=== PATIENT | male | born 1945 | race African-American/Black ===

== ENCOUNTER 2017-07-07 23:07 | Inpatient (IN) | payer MEDICARE, MEDICAID ==
[~2017-07-07] VITALS: Ht 172.7 cm; Wt 86.6 kg
[~2017-07-07 23:07] MED LIST: AMLO10TA80 PO; ATOR10TA69 PO; BIDIL PO; CHOL500010 PO; CLON0.1T PO; CLOP75TA33 PO; DOCU-138 PO
[2017-07-08] MEDS ORDERED: SODIUM CHLORIDE 0.9% 1,000 ML IV ONE (00:26)
[2017-07-08] MEDS ORDERED: ONDANSETRON HCL 4MG/2ML VIAL IV STA (00:26)
[2017-07-08] MEDS ORDERED: MORPHINE SULFATE 4 MG/ML CPJ (NOT FOR IM USE) IV STA (00:26)
[2017-07-08 01:12] LABS: BASOPHILS % 0.5 % (0.0-2.0); EOSINOPHILS % 9.3 % (0.0-5.0); HEMATOCRIT. 42.5 % (42.0-52.0); HEMOGLOBIN. 13.8 g/dL (14.0-18.0); LYMPHOCYTES % 25.8 % (20.0-50.0); MEAN CORPUSCULAR HEMOGLOBIN 28.8 pg (28.0-32.0); MEAN CORPUSCULAR VOLUME 88.4 fL (80.0-94.0); MEAN PLATELET VOLUME 9.4 fl (7.4-10.4); MONOCYTES % 12.6 % (2.0-8.0); NEUTROPHILS % 51.8 % (40.0-76.0); PLATELET 138 x1000/uL (130-400); RED BLOOD CELL COUNT 4.81 mill/uL (4.7-6.1); RED CELL DISTRIBUTION WIDTH 13.1 % (11.6-14.6)
[2017-07-08 01:22] LABS: PROTHROMBIN TIME 10.8 sec (9.4-11.6)
[2017-07-08 01:29] LABS: CARBON DIOXIDE 28 mEq/L (21-32); CHLORIDE 109 mEq/L (98-107); TROPONIN I < 0.02 ng/mL (0.00-0.04)
[2017-07-08 04:54] LABS: CLARITY URINE CLEAR (CLEAR); COLOR URINE DARK YELLOW (YELLOW); GLUCOSE URINE NEGATIVE (NEGATIVE); KETONES URINE TRACE (NEGATIVE); LEUKOCYTE ESTERASE URINE NEGATIVE (NEGATIVE); NITRITE URINE NEGATIVE (NEGATIVE); OCCULT BLOOD URINE NEGATIVE (NEGATIVE); PROTEIN URINE 1+ (NEGATIVE); SPECIFIC GRAVITY URINE 1.038 (1.005-1.030)
[2017-07-08 08:00] VITALS: BP 179/83
[2017-07-08] MEDS: HYDRALAZINE HCL 50MG TABLET PO SCH ×3 (10:15→21:13)
[2017-07-08 10:30] VITALS: BP 176/93
[2017-07-08 12:00] VITALS: BP_SYST 113; BP_SYST 131; BP_DIAS 50; BP_DIAS 71
[2017-07-08] MEDS ORDERED: PNEUMOCOCCAL 23-VAL P-SAC VAC 0.5 ML IM ONE (12:15)
[2017-07-08] MEDS: CHOLECALCIFEROL (D3) 1000 UNIT TABLET PO SCH (14:04)
[2017-07-08] MEDS: AMLODIPINE 10MG TABLET PO SCH (14:05)
[2017-07-08] MEDS: CLOPIDOGREL 75MG TABLET PO SCH (14:05)
[2017-07-08] MEDS: DOCUSATE SODIUM 100MG CAPSULE PO SCH (14:05)
[2017-07-08] MEDS: ENOXAPARIN 40MG/0.4ML SYR SUBCUT SCH (16:33)
[2017-07-08] MEDS: SODIUM CHLORIDE 0.9% 1,000 ML IV SCH (16:34)
[2017-07-08 16:37] LABS: T4 FREE 1.18 ng/dL (0.76-1.46)
[2017-07-08 16:44] VITALS: BP 140/77
[2017-07-08] MEDS: CLONIDINE 0.1MG TABLET PO SCH (18:21)
[2017-07-08 19:20] LABS: *AMPHETAMINES SCREEN URINE NEGATIVE (NEGATIVE); *BARBITURATES SCREEN URINE NEGATIVE (NEGATIVE); *BENZODIAZEPINES SCREEN URINE NEGATIVE (NEGATIVE); *COCAINE SCREEN URINE NEGATIVE (NEGATIVE); CANNABINOID URINE SCREEN NEGATIVE (NEGATIVE); METHADONE URINE SCREEN NEGATIVE (NEGATIVE); OPIATES URINE SCREEN PRESUMTIVE POSITIVE (NEGATIVE); PHENCYCLIDINE URINE SCREEN NEGATIVE (NEGATIVE)
[2017-07-08 20:00] VITALS: BP 131/71
[2017-07-08] MEDS: ATORVASTATIN CALCIUM 10MG TABLET PO SCH (21:12)
[2017-07-08 23:41] LABS: CREATINE KINASE 70 IU/L (39-308); CREATINE KINASE MB FRACTION 1.2 ng/mL (0.5-3.6); TROPONIN I < 0.02 ng/mL (0.00-0.04)
[2017-07-09] VITALS (7 sets, daily range): BP systolic 97–147; BP diastolic 64–73
[2017-07-09] MEDS: SODIUM CHLORIDE 0.9% 1,000 ML IV SCH ×2 (04:47→17:02)
[2017-07-09] MEDS: HYDRALAZINE HCL 50MG TABLET PO SCH ×3 (06:58→21:20)
[2017-07-09 07:35] LABS: CREATINE KINASE 66 IU/L (39-308); CREATINE KINASE MB FRACTION 2.1 ng/mL (0.5-3.6); TROPONIN I < 0.02 ng/mL (0.00-0.04)
[2017-07-09] MEDS: CLOPIDOGREL 75MG TABLET PO SCH (08:40)
[2017-07-09] MEDS: DOCUSATE SODIUM 100MG CAPSULE PO SCH (08:40)
[2017-07-09] MEDS: AMLODIPINE 10MG TABLET PO SCH (08:40)
[2017-07-09] MEDS: CHOLECALCIFEROL (D3) 1000 UNIT TABLET PO SCH (08:41)
[2017-07-09] MEDS: ENOXAPARIN 40MG/0.4ML SYR SUBCUT SCH (14:27)
[2017-07-09] MEDS: CLONIDINE 0.1MG TABLET PO SCH (17:01)
[2017-07-09 17:12] LABS: CREATINE KINASE MB FRACTION 1.8 ng/mL (0.5-3.6); TROPONIN I < 0.02 ng/mL (0.00-0.04)
[2017-07-09 17:13] LABS: CREATINE KINASE 112 IU/L (39-308)
[2017-07-09 19:51] LABS: BASOPHILS % 0.7 % (0.0-2.0); EOSINOPHILS % 9.9 % (0.0-5.0); HEMATOCRIT. 41.4 % (42.0-52.0); HEMOGLOBIN. 13.7 g/dL (14.0-18.0); MEAN CORPUSCULAR HEMOGLOBIN 29.4 pg (28.0-32.0); MEAN PLATELET VOLUME 8.8 fl (7.4-10.4); MONOCYTES % 10.6 % (2.0-8.0); NEUTROPHILS % 57.8 % (40.0-76.0); PLATELET 133 x1000/uL (130-400); RED BLOOD CELL COUNT 4.65 mill/uL (4.7-6.1); RED CELL DISTRIBUTION WIDTH 13.2 % (11.6-14.6)
[2017-07-09 20:16] LABS: CHLORIDE 108 mEq/L (98-107)
[2017-07-09 20:22] LABS: CARBON DIOXIDE 27 mEq/L (21-32)
[2017-07-09] MEDS: ATORVASTATIN CALCIUM 10MG TABLET PO SCH (21:20)
[2017-07-10] VITALS: BP 145/80
[2017-07-10 04:00] VITALS: BP 170/62
[2017-07-10] MEDS: HYDRALAZINE HCL 50MG TABLET PO SCH ×3 (06:47→21:35)
[2017-07-10 08:42] VITALS: BP 165/88
[2017-07-10] MEDS: SODIUM CHLORIDE 0.9% 1,000 ML IV SCH (09:03)
[2017-07-10] MEDS: DOCUSATE SODIUM 100MG CAPSULE PO SCH (09:03)
[2017-07-10] MEDS: CLOPIDOGREL 75MG TABLET PO SCH (09:03)
[2017-07-10] MEDS: AMLODIPINE 10MG TABLET PO SCH (09:03)
[2017-07-10] MEDS: CHOLECALCIFEROL (D3) 1000 UNIT TABLET PO SCH (09:03)
[2017-07-10 12:30] VITALS: BP 187/105
[2017-07-10 16:00] VITALS: BP 147/85
[2017-07-10] MEDS: ENOXAPARIN 40MG/0.4ML SYR SUBCUT SCH (17:05)
[2017-07-10] MEDS: CLONIDINE 0.1MG TABLET PO SCH (17:05)
[2017-07-10 20:00] VITALS: BP 149/76
[2017-07-10] MEDS: ATORVASTATIN CALCIUM 10MG TABLET PO SCH (21:35)
[2017-07-11] VITALS: BP 139/81
[2017-07-11 04:00] VITALS: BP 151/67
[2017-07-11] MEDS: HYDRALAZINE HCL 50MG TABLET PO SCH ×2 (06:51→14:12)
[2017-07-11 08:00] VITALS: BP 147/75
[2017-07-11] MEDS: CHOLECALCIFEROL (D3) 1000 UNIT TABLET PO SCH (08:41)
[2017-07-11] MEDS: CLOPIDOGREL 75MG TABLET PO SCH (08:41)
[2017-07-11] MEDS: DOCUSATE SODIUM 100MG CAPSULE PO SCH (08:42)
[2017-07-11] MEDS: AMLODIPINE 10MG TABLET PO SCH (08:42)
[2017-07-11] MEDS ORDERED: POTASSIUM CHLORIDE 20MEQ TABLET SR PO NR (11:15)
[2017-07-11] MEDS: SODIUM CHLORIDE 0.9% 1,000 ML IV SCH ×2 (12:15→12:16)
[2017-07-11] MEDS: ENOXAPARIN 40MG/0.4ML SYR SUBCUT SCH (14:12)
[2017-07-11 15:07] VITALS: BP 147/75
== END 2017-07-11 16:35 | DRG 391 ==
LOC: ER 23:07 → EDBEDREQ 07-08 06:08 → EDBEDREQTM 07-08 06:08 → ENRESERV 07-08 07:01 → 5WST 07-08 09:39 → UNDODISIN 07-11 14:45
PROVIDERS: ADMIT Family Medicine; ATTEND Family Medicine
DX: K21.9 Gastro-esophageal reflux disease without esophagitis (principal); N17.1 Acute kidney failure with acute cortical necrosis; I69.354 Hemiplegia and hemiparesis following cerebral infarction affecting left non-dominant side; N19 Unspecified kidney failure; E78.5 Hyperlipidemia, unspecified; I10 Essential (primary) hypertension; Z79.899 Other long term (current) drug therapy; Z98.61 Coronary angioplasty status; Z72.89 Other problems related to lifestyle; I51.7 Cardiomegaly
CPT/HCPCS: 36415; 70450; 71010; 80053; 80061; 80305; 81001; 82550; 82553; 82962; 83036; 83880; 84439; 84443; 84484; 85025; 85379; 85610; 90732; 93005; 93306; 93970; 96361; 96374; 96375; 97116; 97162; 97530; 99285; J1650; J2270; J2405; J7030

== ENCOUNTER 2017-12-26 06:31 | Day surgery (SDC) | payer MEDICARE, MEDICAID ==
[~2017-12-26] VITALS: Ht 177.8 cm; Wt 96.2 kg
[~2017-12-26 06:31] MED LIST changes: -BIDIL PO
[2017-12-26] MEDS ORDERED: LIDOCAINE HCL/PF 2% 20 MG/ML 10ML VIAL ONE (07:56)
[2017-12-26] MEDS ORDERED: BALANCED SALT IRRIG SOLN 15ML ONE (07:56)
[2017-12-26] MEDS ORDERED: ACETYLCHOLINE CHLORIDE INTRAOCULAR SOLUTION 1:100 ELECTROLYTE DILUENT IO ONE (07:56)
[2017-12-26] MEDS ORDERED: TETRACAINE 0.5% OPHTH DROPS 4ML ONE (07:56)
[2017-12-26] MEDS ORDERED: BUPIVACAINE HCL/PF 0.75% (7.5MG/ML) 10ML ONE (07:56)
[2017-12-26] MEDS ORDERED: GENTAMICIN SULF 40MG/ML 2ML VIAL ONE (07:56)
[2017-12-26] MEDS ORDERED: PHENYLEPHRINE 2.5% OPHTH 15 DROP/ML BOTTLE LEFTEYE ONE (09:00)
[2017-12-26] MEDS ORDERED: TROPICAMIDE 1% OPHTH DROPS 15ML LEFTEYE ONE (09:00)
[2017-12-26 09:58] LABS: BASOPHILS % 0.9 % (0.0-2.0); EOSINOPHILS % 3.3 % (0.0-5.0); HEMATOCRIT. 40.3 % (42.0-52.0); HEMOGLOBIN. 13.2 g/dL (14.0-18.0); LYMPHOCYTES % 20.5 % (20.0-50.0); MEAN CORPUSCULAR HEMOGLOBIN 29.4 pg (28.0-32.0); MEAN CORPUSCULAR VOLUME 89.7 fL (80.0-94.0); MONOCYTES % 9.5 % (2.0-8.0); NEUTROPHILS % 65.8 % (40.0-76.0); RED CELL DISTRIBUTION WIDTH 14.2 % (11.6-14.6)
[2017-12-26 10:10] LABS: CHLORIDE 107 mEq/L (98-107)
[2017-12-26] MEDS ORDERED: HYALURONATE SODIUM 14 MG/ML 0.85ML SYRINGE IO ONE (11:01)
[2017-12-26] MEDS ORDERED: TOBRAMYCIN/DEXAMETH 0.1/0.3% OPHTH SUSP 2.5ML ONE (11:01)
[2017-12-26] MEDS ORDERED: MIDAZOLAM HCL 2 MG/2 ML VIAL ONE ×2 (11:27→11:51)
[2017-12-26] MEDS ORDERED: ONDANSETRON HCL 4MG/2ML VIAL ONE (11:27)
[2017-12-26] MEDS ORDERED: FENTANYL CITRATE/PF 50MCG/ML 2ML VIAL ONE ×2 (11:27→12:25)
[2017-12-26] MEDS ORDERED: BALANCED SALT IRRIG SOLN COMB1 500ML OP SCH (11:30)
[2017-12-26 11:52] LABS: MEAN PLATELET VOLUME 9.4 fl (7.4-10.4); PLATELET 179 x1000/uL (130-400)
[2017-12-26] MEDS ORDERED: LABETALOL HCL 5MG/ML VIAL 20ML IV ONE (11:53)
[2017-12-26] MEDS ORDERED: CEFAZOLIN SODIUM 1000MG/VIAL ONE (12:31)
[2017-12-26] MEDS ORDERED: ONDANSETRON HCL 4MG/2ML VIAL IV SCH (12:45)
[2017-12-26] MEDS ORDERED: MEPERIDINE HCL/PF 25MG/ML CPJ IV PRN (12:45)
== END 2017-12-26 15:35 | disposition home or self-care (01) ==
LOC: OR 06:31
PROVIDERS: ATTEND Ophthalmology
DX: H26.8 Other specified cataract (principal); E66.01 Morbid (severe) obesity due to excess calories; Z79.899 Other long term (current) drug therapy; Z86.73 Personal history of transient ischemic attack (TIA), and cerebral infarction without residual deficits
CPT/HCPCS: 36415; 66984; 67005; 80048; 85025; 88300; 93005; J0690; J1580; J2250; J2405; J3010; J3490; J7120; V2632